=== PATIENT | female | born 1960 | race African-American/Black ===

== ENCOUNTER 2017-04-22 09:38 | Emergency (ER) | payer OTHER ==
[~2017-04-22] VITALS: Ht 154.9 cm; Wt 156.5 kg
[2017-04-22 11:04] LABS: PLATELET COUNT 433 K/uL (152-353)
[2017-04-22 11:08] LABS: POTASSIUM 2.9 mmol/L (3.6-5.2); SODIUM 131 mmol/L (136-145)
[2017-04-22 12:31] VITALS: BP 160/81; TEMP 98.8
== END 2017-04-22 12:30 | disposition home or self-care (01) ==
LOC: ED 09:38
PROVIDERS: Specialist
DX: E87.6 Hypokalemia (principal); R53.1 Weakness
CPT/HCPCS: 36415; 80048; 85027; 99283

== ENCOUNTER 2017-10-10 15:55 | Outpatient (CLI) | payer OTHER | END 2017-10-10 21:51 | disposition home or self-care (01) | LOC: RAD 15:55 | DX: Z01.818 Encounter for other preprocedural examination (principal) ==

== ENCOUNTER 2018-10-02 14:12 | Outpatient (CLI) | payer OTHER | END 2018-10-02 23:47 | disposition home or self-care (01) | LOC: CT 14:12 | DX: R51 Headache (principal) ==

== ENCOUNTER 2018-11-06 15:35 | Outpatient (CLI) | payer OTHER | END 2018-11-06 20:09 | disposition home or self-care (01) | LOC: MAMMO 15:35 | DX: Z12.31 Encounter for screening mammogram for malignant neoplasm of breast (principal); N64.59 Other signs and symptoms in breast; R22.31 Localized swelling, mass and lump, right upper limb ==

== ENCOUNTER 2018-12-05 07:35 | Outpatient (CLI) | payer OTHER | END 2018-12-05 23:04 | disposition home or self-care (01) | LOC: NM 07:35 | DX: R14.0 Abdominal distension (gaseous) (principal) | CPT/HCPCS: A9541 ==

== ENCOUNTER 2019-07-30 14:16 | Emergency (ER) | payer OTHER ==
[~2019-07-30] VITALS: Ht 154.9 cm; Wt 153.3 kg
[2019-07-30 15:07] VITALS: TEMP 97.9
[2019-07-30 18:08] VITALS: BP 152/85
== END 2019-07-30 18:08 | disposition home or self-care (01) ==
LOC: ED 14:16
DX: S09.8XXA Other specified injuries of head, initial encounter (principal); S16.1XXA Strain of muscle, fascia and tendon at neck level, initial encounter; S39.012A Strain of muscle, fascia and tendon of lower back, initial encounter; W18.39XA Other fall on same level, initial encounter; Y92.89 Other specified places as the place of occurrence of the external cause
CPT/HCPCS: 99283

== ENCOUNTER 2019-12-12 10:43 | Outpatient (CLI) | payer OTHER | END 2019-12-12 23:02 | disposition home or self-care (01) | LOC: LAB 10:43 | DX: R05 Cough (principal) | CPT/HCPCS: 87070; 87077; 87186; 87205 ==

== ENCOUNTER → 2020-01-08 | Outpatient (CLI) | payer OTHER | LOC: LAB 22:42 | PROVIDERS: ATTEND Nurse Practitioner | DX: R05 Cough (principal) | CPT/HCPCS: 87070; 87077; 87186; 87205 ==

== ENCOUNTER 2020-05-16 23:08 | Observation (INO) | payer OTHER ==
[~2020-05-16] VITALS: Ht 154.9 cm; Wt 158.8 kg
[2020-05-16 23:14] VITALS: BP 104/81; TEMP 98.2
[2020-05-16 23:30] VITALS: BP 120/44
[2020-05-16 23:54] VITALS: BP 182/98
[2020-05-17] VITALS (8 sets, daily range): BP systolic 140–176; BP diastolic 74–92; TEMP 97.9–98.3; Ht 154.9 cm; Wt 158.8 kg
[2020-05-17 00:09] LABS: PARTIAL THROMBOPLASTIN TIME 26.4 SECONDS (24.5-33.6)
[2020-05-17 00:16] LABS: POTASSIUM 3.3 mmol/L (3.6-5.2); SODIUM 138 mmol/L (136-145)
[2020-05-17 00:41] LABS: PLATELET COUNT 330 K/uL (152-353)
[2020-05-17] MEDS ORDERED: PHENTERMINE H37.5 M1 PO (10:57)
[2020-05-17] MEDS ORDERED: BUPROPION HYDR300 MG PO (10:59)
[2020-05-17] MEDS ORDERED: IBU800 MG PO (11:00)
[2020-05-17] MEDS ORDERED: FUROSEMIDE20 MG PO (11:01)
[2020-05-17] MEDS ORDERED: APRODINE1 TAB PO ×2 (11:03→11:04)
[2020-05-17] MEDS ORDERED: CALCITRIOL0.5 MCG PO (11:05)
[2020-05-17] MEDS ORDERED: EUTHYROX200 MCG PO (11:06)
[2020-05-17] MEDS ORDERED: GLYCOPYRROL2 MG PO (11:08)
[2020-05-17] MEDS ORDERED: EUTHYROX50 MCG PO (11:11)
[2020-05-17] MEDS ORDERED: LEVAQUIN250 MG PO (12:02)
== END 2020-05-17 16:05 | disposition home or self-care (01) ==
LOC: ED 23:14 → MED/SURG 05-17 00:36 → UNDODEPER 05-17 01:20 → MED/SURG 05-17 16:05
PROVIDERS: Hospitalist; ADMIT Internal Medicine Endocrinology, Diabetes & Metabolism; ATTEND Internal Medicine Endocrinology, Diabetes & Metabolism
DX: J18.8 Other pneumonia, unspecified organism (principal); I10 Essential (primary) hypertension; E11.9 Type 2 diabetes mellitus without complications; R09.02 Hypoxemia; E66.01 Morbid (severe) obesity due to excess calories; G47.33 Obstructive sleep apnea (adult) (pediatric); K21.9 Gastro-esophageal reflux disease without esophagitis; J45.998 Other asthma
CPT/HCPCS: 36415; 80053; 80320; 82550; 83880; 84484; 85027; 85610; 85730; 87040; 90686; 93005; 94760; 96360; 96365; 96366; 96367; 99220; 99284; G0378; J0456; J1650; J1956

== ENCOUNTER 2020-05-31 13:38 | Outpatient (CLI) | payer OTHER ==
[~2020-05-31 13:38] MED LIST: APRODINE1 TAB PO; BUPROPION HYDR300 MG PO; CALCITRIOL0.5 MCG PO; EUTHYROX200 MCG PO; EUTHYROX50 MCG PO; FUROSEMIDE20 MG PO; GLYCOPYRROL2 MG PO; IBU800 MG PO; LEVAQUIN250 MG PO; PHENTERMINE H37.5 M1 PO
== END 2020-05-31 21:43 | disposition home or self-care (01) ==
LOC: RAD 13:38
PROVIDERS: ATTEND Internal Medicine
DX: J18.9 Pneumonia, unspecified organism (principal)

== ENCOUNTER 2021-03-14 15:51 | Outpatient (CLI) | payer OTHER | END 2021-03-14 20:12 | disposition home or self-care (01) | LOC: RAD 15:51 | PROVIDERS: ATTEND Internal Medicine | DX: M19.90 Unspecified osteoarthritis, unspecified site (principal); W19.XXXA Unspecified fall, initial encounter ==

== ENCOUNTER 2022-08-10 14:11 | Outpatient (CLI) | payer OTHER | END 2022-08-10 22:29 | disposition home or self-care (01) | LOC: RAD 14:11 | DX: R13.12 Dysphagia, oropharyngeal phase (principal) ==

== ENCOUNTER 2022-12-22 10:27 | Outpatient (CLI) | payer OTHER | END 2022-12-22 19:05 | disposition home or self-care (01) | LOC: RAD 10:27 | PROVIDERS: ATTEND Surgery | DX: K44.9 Diaphragmatic hernia without obstruction or gangrene (principal) ==

== ENCOUNTER 2023-02-06 10:00 | Outpatient (CLI) | payer OTHER | END 2023-02-06 19:13 | disposition home or self-care (01) | LOC: LABW 10:00 | PROVIDERS: ATTEND Podiatrist | DX: M10.071 Idiopathic gout, right ankle and foot (principal) | CPT/HCPCS: 36415; 84550; 86140 ==